=== PATIENT | male | born 1960 | race Caucasian/White ===

== ENCOUNTER 2020-10-24 12:11 | Emergency (ER) | payer OTHER ==
[~2020-10-24] VITALS: Ht 190.5 cm; Wt 113.4 kg
[2020-10-24] MEDS ORDERED: MUPIROCIN22 G1 TP (12:38)
[2020-10-24] MEDS ORDERED: CELEBREX200 MG PO (12:38)
[2020-10-24] MEDS ORDERED: ZOFRAN4 MG PO (12:38)
[2020-10-24] MEDS ORDERED: XARELTO15 MG PO (14:47)
[2020-10-24] MEDS ORDERED: Norco 5-325 Ta1 EACH PO (14:59)
== END 2020-10-24 14:59 | disposition home or self-care (01) ==
LOC: ER 12:11
DX: I82.442 Acute embolism and thrombosis of left tibial vein (principal); Z79.01 Long term (current) use of anticoagulants; Z79.899 Other long term (current) drug therapy
CPT/HCPCS: 73502; 93971; 99284-25

== ENCOUNTER 2022-06-10 06:03 | Day surgery (SDC) | payer OTHER ==
[~2022-06-10] VITALS: Ht 182.9 cm; Wt 118.1 kg
[~2022-06-10 06:03] MED LIST: ATOR10 PO; CELEBREX200 MG PO; MUPIROCIN22 G1 TP; Norco 5-325 Ta1 EACH PO; XARELTO15 MG PO; ZOFRAN4 MG PO
[2022-06-10] MEDS ORDERED: IBUP200 PO (06:24)
--- NOTE | 2022-06-10 07:30 | NUR ---
06/10/22 0730 Jerrica Miramontes INJECTION AT 0724. PT TOLERATED WELL. NO CHANGE IN VITAL SIGNS
--- NOTE | 2022-06-10 07:41 | NUR ---
06/10/22 0741 Geovanni Moore LOCAL INJECTION ADMINISTERED IN PRE-OP.
== END 2022-06-10 08:34 | disposition home or self-care (01) ==
LOC: ORSCSDS 06:03
PROVIDERS: Orthopaedic Surgery
PROC: 0LN70ZZ Release Right Hand Tendon, Open Approach (ICD-10-PCS; principal; 2022-06-10 07:30)
DX: M65.331 Trigger finger, right middle finger (principal); M65.341 Trigger finger, right ring finger; E78.5 Hyperlipidemia, unspecified; F41.9 Anxiety disorder, unspecified; E66.9 Obesity, unspecified; Z68.35 Body mass index [BMI] 35.0-35.9, adult; Z79.899 Other long term (current) drug therapy
CPT/HCPCS: J0171; J1100; J2405; J2704; J2795; J3010; J7120

== ENCOUNTER 2022-10-14 10:21 | Day surgery (SDC) | payer OTHER ==
[~2022-10-14] VITALS: Ht 182.9 cm; Wt 121.5 kg
[~2022-10-14 10:21] MED LIST changes: +IBUP200 PO
== END 2022-10-14 12:45 | disposition home or self-care (01) ==
LOC: ORSCSDS 10:21
PROVIDERS: Orthopaedic Surgery
PROC: 0LN80ZZ Release Left Hand Tendon, Open Approach (ICD-10-PCS; principal; 2022-10-14 11:30)
DX: M65.332 Trigger finger, left middle finger (principal); F41.9 Anxiety disorder, unspecified; E78.5 Hyperlipidemia, unspecified; E66.9 Obesity, unspecified; Z68.36 Body mass index [BMI] 36.0-36.9, adult; Z79.899 Other long term (current) drug therapy
CPT/HCPCS: J2250; J7120

== ENCOUNTER 2024-07-17 08:11 | Emergency (ER) | payer OTHER ==
[~2024-07-17] VITALS: Ht 182.9 cm; Wt 111.1 kg
[2024-07-17 08:42] VITALS: BP 178/89
[2024-07-17] MEDS ORDERED: HYDR1TAB94 PO ×3 (08:48→10:42)
[2024-07-17] MEDS ORDERED: VALA500 PO ×2 (08:48→10:41)
== END 2024-07-17 08:50 | disposition home or self-care (01) ==
LOC: ER 08:11
DX: B02.9 Zoster without complications (principal); Z88.8 Allergy status to other drugs, medicaments and biological substances
CPT/HCPCS: 99282

== ENCOUNTER 2024-11-02 10:30 | Day surgery (SDC) | payer OTHER ==
[~2024-11-02] VITALS: Ht 182.9 cm; Wt 110.9 kg
[~2024-11-02 10:30] MED LIST changes: +Balanced Salt Epinephrine Irrigation Solution 500 mL IR SCH; +HYDR1TAB94 PO; +Lidocaine HCl/Pf 1% 5 ML VIAL XX SCH; +Moxifloxacin HCL 0.5 MG/0.1 ML 0.4MLSYR RIGHTEYE SCH; +PHENYLEPHRINE\\TROPICAMIDE\\TETRACAINE OPHTHALMIC DILATING SOLN RIGHTEYE PRN; +Povidone-Iodine 450 DROP/30 ML Solution ONE; +Povidone-Iodine 450 DROP/30 ML Solution RIGHTEYE SCH; +Tetracaine HCl/Pf 0.5% Opth Soln 4 ml ONE; +Triamcinolone Inj Susp 40 MG / ML 1ML Vial INJ SCH; +Triamcinolone Inj Susp 40 MG / ML 1ML Vial ONE; +VALA500 PO
--- NOTE | 2024-11-02 11:13 | NUR ---
11/02/24 1113 [facility] 1105: DISCUSSED NOTED ALLERGY OF MIDAZOLAM WITH PATIENT AND DRS MICHAEL AND DRU. PER PATIENT IT IS NOT A TRUE ALLERGY, BUT HE DOES EXPERIENCE SEVERE VOMITING AFTER MIDAZOLAM. PER PATIENT HE IS A "NEGATIVE 10" ON THE ANXIETY SCALE AND WOULD BE OK WITHOUT ANY SEDATION. DISCUSSED THIS WITH DR RODRIGUEZ AND HE GAVE ORDERS TO NOT GIVE ANY VALIUM.
[2024-11-02] MEDS ORDERED: Ondansetron HCl 2 MG / ML 2ML Vial ONE (11:15)
[2024-11-02] MEDS ORDERED: Tetracaine HCl 0.5% Opth Soln 15 ml RIGHTEYE ONE (11:41)
[2024-11-02 12:07] VITALS: BP 159/82
== END 2024-11-02 12:22 | disposition home or self-care (01) ==
LOC: ORSCSDS 10:30
PROVIDERS: Ophthalmology
PROC: 08RJ3JZ Replacement of Right Lens with Synthetic Substitute, Percutaneous Approach (ICD-10-PCS; principal; 2024-11-02 12:00)
DX: H25.811 Combined forms of age-related cataract, right eye (principal); F41.9 Anxiety disorder, unspecified; E78.5 Hyperlipidemia, unspecified; R73.03 Prediabetes; K76.0 Fatty (change of) liver, not elsewhere classified; Z86.718 Personal history of other venous thrombosis and embolism; Z79.899 Other long term (current) drug therapy
CPT/HCPCS: 82947; J2405; J3301; V2632

== ENCOUNTER 2024-11-09 08:31 | Day surgery (SDC) | payer OTHER ==
[~2024-11-09] VITALS: Ht 182.9 cm; Wt 111.4 kg
[~2024-11-09 08:31] MED LIST changes: +Moxifloxacin HCL 0.5 MG/0.1 ML 0.4MLSYR LEFTEYE SCH; -Moxifloxacin HCL 0.5 MG/0.1 ML 0.4MLSYR RIGHTEYE SCH; +PHENYLEPHRINE\\TROPICAMIDE\\TETRACAINE OPHTHALMIC DILATING SOLN LEFTEYE PRN; -PHENYLEPHRINE\\TROPICAMIDE\\TETRACAINE OPHTHALMIC DILATING SOLN RIGHTEYE PRN; +Povidone-Iodine 450 DROP/30 ML Solution LEFTEYE SCH; -Povidone-Iodine 450 DROP/30 ML Solution RIGHTEYE SCH
[2024-11-09] MEDS ORDERED: Diazepam 5 MG Tab ONE (08:49)
[2024-11-09 10:03] VITALS: BP 141/74
== END 2024-11-09 10:13 | disposition home or self-care (01) ==
LOC: ORSCSDS 08:31
PROVIDERS: Ophthalmology
PROC: 08RK3JZ Replacement of Left Lens with Synthetic Substitute, Percutaneous Approach (ICD-10-PCS; principal; 2024-11-09 10:00)
DX: H25.812 Combined forms of age-related cataract, left eye (principal); H52.202 Unspecified astigmatism, left eye; Z96.1 Presence of intraocular lens; E78.5 Hyperlipidemia, unspecified; F41.9 Anxiety disorder, unspecified; Z79.899 Other long term (current) drug therapy
CPT/HCPCS: A9270; J3301; V2632

== ENCOUNTER 2025-09-20 06:15 | Day surgery (SDC) | payer OTHER ==
[~2025-09-20] VITALS: Ht 182.9 cm; Wt 113.9 kg
[~2025-09-20 06:15] MED LIST changes: -Balanced Salt Epinephrine Irrigation Solution 500 mL IR SCH; -Lidocaine HCl/Pf 1% 5 ML VIAL XX SCH; -Moxifloxacin HCL 0.5 MG/0.1 ML 0.4MLSYR LEFTEYE SCH; -PHENYLEPHRINE\\TROPICAMIDE\\TETRACAINE OPHTHALMIC DILATING SOLN LEFTEYE PRN; -Povidone-Iodine 450 DROP/30 ML Solution LEFTEYE SCH; -Povidone-Iodine 450 DROP/30 ML Solution ONE; -Tetracaine HCl/Pf 0.5% Opth Soln 4 ml ONE; -Triamcinolone Inj Susp 40 MG / ML 1ML Vial INJ SCH; -Triamcinolone Inj Susp 40 MG / ML 1ML Vial ONE
[2025-09-20] MEDS ORDERED: CeFAZolin Sodium 2,000 MG VIAL ONE (06:32)
[2025-09-20] MEDS ORDERED: Tranexamic Acid 100 ML IV ONE ×2 (06:33→10:09)
[2025-09-20] MEDS ORDERED: Dexamethasone Sod Phos 10 MG/ML 1ML VIAL ONE ×2 (06:59→08:25)
[2025-09-20] MEDS ORDERED: Rocuronium Bromide 10 MG/ML 5ML Injection IV ONE (06:59)
[2025-09-20] MEDS ORDERED: Midazolam HCl 1MG / ML 2ML Vial ONE (07:02)
[2025-09-20] MEDS ORDERED: FentaNYL Citrate 50 MCG/ML 2 ML Injection ONE (07:02)
[2025-09-20] MEDS ORDERED: Ropivacaine 0.5% HCL/PF 5 MG/ML 30ML Vial ONE (07:07)
--- NOTE | 2025-09-20 07:56 | NUR ---
09/20/25 0756 Evelia Dowell BLOCK WAS DELAYED D/T PT HAVING ANXIETY REGARDING THE NERVE BLOCK. PROPOFOL WAS USED INSTEAD OF VERSED D/T PT HAVING AN ALLERGY TO VERSED. PT TOLERATED NERVE BLOCK WELL WITH PROPOFOL AND WAS AWAKE DURING THE BLOCK. PT WAS ON CONTINUOUS PULSE OX MONITORING WITH 2L OXYGEN ON. O2 SATS STAYED ABOVE 99 DURING THE BLOCK. BLOCK T/O:727 START:736 END:742.
[2025-09-20] MEDS ORDERED: Ondansetron HCl 2 MG / ML 2ML Vial ONE (08:25)
[2025-09-20] MEDS ORDERED: Sugammadex Sodium 200 MG/2ML SDV (100 MG/ML) ONE (08:26)
--- NOTE | 2025-09-20 08:32 | NUR ---
09/20/25 0832 Geovanni Moore TXA 1GM IV GIVEN AT 0801 BY ANESTHESIA.
--- NOTE | 2025-09-20 10:34 | NUR ---
09/20/25 Benita4 Delfino Larson 04/24 LEFT ELBOW DISCOMFORT STATED TO BE TOLERABLE. ON ROOM AIR WITH SATS IN THE MID 90S. PT IS ALERT AND RESPONDING WELL
[2025-09-20 10:35] VITALS: BP 114/68
[2025-09-20] MEDS ORDERED: Ketorolac Tromethamine 30mg Vial IV ONE (11:16)
== END 2025-09-20 12:14 | disposition home or self-care (01) ==
LOC: ORSCSDS 06:15
PROVIDERS: Orthopaedic Surgery
PROC: 0RRK00Z Replacement of Left Shoulder Joint with Reverse Ball and Socket Synthetic Substitute, Open Approach (ICD-10-PCS; principal; 2025-09-20 07:30)
DX: M19.012 Primary osteoarthritis, left shoulder (principal); E78.5 Hyperlipidemia, unspecified; I10 Essential (primary) hypertension; G47.33 Obstructive sleep apnea (adult) (pediatric); F41.9 Anxiety disorder, unspecified; Z86.718 Personal history of other venous thrombosis and embolism; E66.9 Obesity, unspecified; Z68.34 Body mass index [BMI] 34.0-34.9, adult
CPT/HCPCS: 73030; 82947; A9270; C1713; C1776; J0690; J1100; J1885; J2250; J2405; J2704; J2795; J3010; J7120